=== PATIENT | male | born 1985 | race Caucasian/White ===

== ENCOUNTER 2016-09-24 16:08 | Emergency (ER) ==
[2016-09-24] MEDS ORDERED: NORCO-5 PO ONE (16:24)
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
--- NOTE | 2016-09-24 17:37 | Diag Imaging Result Document ---
PROCEDURE NAME: LUMBAR SPINE - 09/24/2016 LUMBAR SPINE SERIES WITH OBLIQUES, 6 VIEWS: FINDINGS: There is some curvature of the thoracolumbar spine with convexity to the left. The pedicles are intact. The disc spaces are well maintained. There is no evidence of fracture or subluxation. IMPRESSION: Mild scoliosis.
== END 2016-09-24 17:14 | disposition home or self-care (01) ==
LOC: P.ED 16:08
DX: M54.41 Lumbago with sciatica, right side (principal); F17.210 Nicotine dependence, cigarettes, uncomplicated; V89.2XXA Person injured in unspecified motor-vehicle accident, traffic, initial encounter
CPT/HCPCS: 72110; 99283